=== PATIENT | male | born 1960 | race Caucasian/White ===

== ENCOUNTER 2018-08-03 20:20 | Emergency (ER) | payer BC ==
[~2018-08-03] VITALS: Ht 175.3 cm; Wt 99.3 kg
[2018-08-03 20:25] VITALS: Ht 175.3 cm; Wt 99.3 kg
[2018-08-03 22:38] VITALS: BP 154/87
== END 2018-08-03 22:38 | disposition home or self-care (01) ==
LOC: ED 20:20
DX: S61.412A Laceration without foreign body of left hand, initial encounter (principal); R03.0 Elevated blood-pressure reading, without diagnosis of hypertension; W26.8XXA Contact with other sharp object(s), not elsewhere classified, initial encounter; Y93.89 Activity, other specified; Y92.89 Other specified places as the place of occurrence of the external cause; Y99.8 Other external cause status
CPT/HCPCS: 90714; J2001